=== PATIENT | female | born 1960 | race Caucasian/White ===

== ENCOUNTER 2017-12-11 07:01 | Day surgery (SDC) | payer OTHER ==
[~2017-12-11] VITALS: Ht 157.5 cm; Wt 65.5 kg
[2017-12-11] MEDS ORDERED: BENZOCAINE 20% 50 MCG/SPRAY 57 GM TP ONE (07:02)
[2017-12-11] MEDS ORDERED: LIDOCAINE HCL 4% 50 ML SOLUTION TP ONE (07:02)
[2017-12-11] MEDS ORDERED: LIDOCAINE HCL 2% 30 ML JELLY TP ONE (07:02)
[2017-12-11] MEDS ORDERED: SODIUM CHLORIDE 0.9% 1,000 ML IV ONE ×2 (07:19→07:30)
[2017-12-11] MEDS ORDERED: FentaNYL CITRATE-PF 100 MCG/2 ML VIAL ONE (08:04)
[2017-12-11] MEDS ORDERED: MIDAZOLAM HCL 2 MG/2 ML VIAL ONE (08:04)
[2017-12-11] MEDS ORDERED: MethylPREDNISolone SOD SUCC 125 MG/2 ML VIAL IVP ONE (09:30)
[2017-12-11] MEDS ORDERED: OXYGEN THERAPY IH SCH (20:00)
== END 2017-12-11 10:45 | disposition home or self-care (01) ==
LOC: SURGERY 07:01
PROVIDERS: ATTEND Internal Medicine Critical Care Medicine
DX: J38.4 Edema of larynx (principal); B37.0 Candidal stomatitis; J84.111 Idiopathic interstitial pneumonia, not otherwise specified; M47.812 Spondylosis without myelopathy or radiculopathy, cervical region; Z90.49 Acquired absence of other specified parts of digestive tract; Z98.890 Other specified postprocedural states
CPT/HCPCS: 31623; 31624; 71045; 87015; 87070; 87205; 87220; 88108; 88184; 88185; 88312; J2250; J2930; J3010; J7030